=== PATIENT | male | born 2000 ===

== ENCOUNTER → 2022-04-03 | Outpatient (REF) | payer OTHER ==
[2022-04-03 10:27] LABS: SEMEN APPEARANCE OPAQUE (OPAQUE); SEMEN VISCOSITY LIQUID (LIQUID); SEMEN VOLUME 2.7 ml (2.0-5.0); SEMEN pH 8.5 (7.0-8.0)
[2022-04-03 10:28] LABS: SPERM CONCENTRATION 36.8 M/ml (>=15.0); WBC CONCENTRATION <=1 M/ml (<=1 M/ml)
== END ==
LOC: M LAB REF 09:53
DX: Z31.41 Encounter for fertility testing (principal)

== ENCOUNTER → 2022-06-02 | Outpatient (REF) | LOC: M PLAIMG 08:47 | PROVIDERS: ATTEND Internal Medicine | DX: R06.02 Shortness of breath (principal) ==